=== PATIENT | male | born 1990 | race African-American/Black ===

== ENCOUNTER 2024-05-06 06:22 | Emergency (ER) | payer SELFPAY ==
[~2024-05-06] VITALS: Ht 190.5 cm; Wt 77.3 kg
[2024-05-06 06:30] VITALS: TEMP 97.8
[2024-05-06] MEDS ORDERED: CYCL-448 PO (06:30)
[2024-05-06] MEDS ORDERED: HYDR-4072 PO (06:30)
[2024-05-06] MEDS: OxyCODONE HCL/ACETAMINOPHEN 5-325 MG TABLET PO ONE (07:41)
[2024-05-06] MEDS: METHOCARBAMOL 500 MG TABLET PO ONE (07:41)
[2024-05-06] MEDS ORDERED: METH-659 PO (07:43)
[2024-05-06] MEDS ORDERED: PERCT PO (07:43)
[2024-05-06 07:58] VITALS: BP 127/87; PULSE 97; RESP 18
== END 2024-05-06 07:59 | disposition home or self-care (01) ==
LOC: EMS 06:24
DX: M50.90 Cervical disc disorder, unspecified, unspecified cervical region (principal)
CPT/HCPCS: 99283